=== PATIENT | female | born 1950 | race Caucasian/White ===

== ENCOUNTER 2017-06-14 11:10 | Emergency (ER) ==
[2017-06-14 11:20] VITALS: BP 121/79; TEMP 97.6; BMI 33.3
[2017-06-14 12:19] LABS: BASOPHILS # (AUTO) 0.1 K/uL (0-0.2); BASOPHILS % (AUTO) 0.6 % (0.0-3.0); EOSINOPHILS % (AUTO) 0.4 % (0.0-7.0); HEMATOCRIT 38.3 % (37.0-47.0); HEMOGLOBIN 12.6 g/dl (12.0-16.0); IMMATURE GRANULOCYTE % (AUTO) 0.2 % (0.0-5.0); LYMPHOCYTES # (AUTO) 2.2 K/uL (0.60-3.4); LYMPHOCYTES % (AUTO) 24.7 (10.0-50.0); MEAN CORPUSCULAR HGB CONC 32.9 (31.8-35.4); MEAN CORPUSCULAR VOLUME 94.3 fl (81.0-99.0); MONOCYTES # (AUTO) 0.4 K/uL (0.4-2.0); MONOCYTES % (AUTO) 4.9 (0-10); NEUTROPHILS # (AUTO) 6.1 K/ul (2.0-6.9); NEUTROPHILS % (AUTO) 69.2; PLATELET COUNT 270 10^3/uL (140-440); RED BLOOD COUNT 4.06 10^6/ul (4.20-5.40); WHITE BLOOD COUNT 8.89 K/ul (4.6-10.2)
[2017-06-14 12:20] LABS: ABG BASE EXCESS -2 (-2.0-2.0); ABG HCO3 23 (22.0-26.0); ABG PH 7.41 (7.35-7.45); ABG TCO2 24 (22.0-28.0)
--- NOTE | 2017-06-14 12:46 | DI ---
EXAM: CHEST FRONTAL AND LATERAL VIEWS HISTORY: Shortness of breath. COMPARISON: None FINDINGS: Normal heart size. Chronic-appearing lung changes. There are a few tiny nodules in the lung bases most noticeable entity measuring 0.32 x 0.17 cm. No acute infiltrates or vascular conges tion. No pneumothorax, pleural fluid or acute bony finding. IMPRESSION: 1. No acute cardiopulmonary process. 2. Indeterminate 0.32-cm nodule right lower lung. Consider follow-up radiography in 3-4 months.
[2017-06-14 13:01] LABS: ALBUMIN 3.4 g/dL (3.4-5.0); ALBUMIN/GLOBULIN RATIO 0.92; ANION GAP 17.1; BILIRUBIN,TOTAL 0.39 mg/dL (0.00-1.20); BUN/CREATININE RATIO 17.33; CREATININE 0.75 mg/dL (0.60-1.30); POTASSIUM 5.1 mmol/L (3.5-5.10); TOTAL PROTEIN 7.1 g/dL (5.8-8.1)
[2017-06-14 13:05] LABS: TROPONIN I 0.011 ng/ml (0.0000-0.4000)
[2017-06-14] MEDS ORDERED: SOLU-MEDROL 125 MG IVP STA (13:27)
[2017-06-14] MEDS ORDERED: BENADRYL IV STA (13:28)
[2017-06-14] MEDS ORDERED: PEPCID PO STA (13:28)
--- NOTE | 2017-06-14 13:59 | ED.PDOC ---
General ED Provider: Dr. JAMES FRY Chief Complaint: Shortness of Air Stated Complaint: short of air , cough Time Seen by Physician: 23:20 Mode of Arrival: Wheelchair Information Source: Patient, Family Exam Limitations: No limitations Primary Care Provider: JENNIFER POLANCO Nursing and Triage Documentation Reviewed and Agree: Yes Respiratory Complaint Exam - Respiratory Complaint/Exam Symptoms Are: Still present Timing: Constant Initial Severity: Mild Current Severity: None Location: Chest Character: Reports: Non-productive cough Aggravating: Reports: None Alleviating: Reports: None Associated Signs and Symptoms: Denies: Rapid breathing, Dyspnea, Fever, Chills, Chest pain, Pleuritic chest pain, Wheezing, Hemoptysis, Dizziness, Calf pain, Calf swelling, Edema, URI, Nasal congestion, Hoarseness, Sinus discomfort, Vomiting, Sore throat, Weight loss, Decreased oral intake, Increased thirst, Increased appetite, Increased urination Related History: Reports: Similar episode History of Healthcare-Acquired Pneumonia: No Related Surgical History: Reports: None Pulmonary Embolism Risk Factors: Bedrest Cardiac Risk Factors: Reports: None Review of Systems - Review Of Systems Constitutional: Reports: No symptoms Eyes: Reports: No symptoms Ears, Nose, Mouth, Throat: Reports: No symptoms Respiratory: Reports: Cough, Short of air Cardiac: Reports: No symptoms GI: Reports: No symptoms : Reports: No symptoms Musculoskeletal: Reports: No symptoms Skin: Reports: No symptoms Neurological: Reports: No symptoms Endocrine: Reports: No symptoms Hematologic/Lymphatic: Reports: No symptoms All Other Systems: Reviewed and Negative Past Medical History - Past Medical History Previously Healthy: No Endocrine: Reports: Hypothyroid Cardiovascular: Reports: Hypertension Respiratory: Reports: None Hematological: Reports: None Gastrointestinal: Reports: None Genitourinary: Reports: None Neuro/Psych: Reports: None Musculoskeletal: Reports: None Cancer: Reports: None Last Menstrual Period: na - Surgical History General Surgical History: Reports: None - Family History Family History: Reports: None - Social History Smoking Status: Never smoker Hx Substance Use: No Alcohol Screening: None - Immunizations Tetanus Shot up to Date: Yes Physical Exam - Physical Exam Appearance: Well-appearing, No pain distress, Well-nourished Eyes: ELENA, EOMI, Conjunctiva clear ENT: Ears normal, Nose normal, Oropharynx normal Respiratory: Airway patent, Breath sounds clear, Breath sounds equal, Respirations nonlabored Cardiovascular: RRR, Pulses normal, No rub, No murmur GI/: Soft, Nontender, No masses, Bowel sounds normal, No Organomegaly Musculoskeletal: Normal strength, ROM intact, No edema, No calf tenderness Skin: Warm, Dry, Normal color Neurological: Sensation intact, Motor intact, Reflexes intact, Cranial nerves intact, Alert, Oriented Psychiatric: Affect appropriate, Mood appropriate Critical Care Note - Critical Care Note Total Time (mins): 0 Course - Course Hematology/Chemistry: 06/14/17 12:10 06/14/17 12:10 Orders, Labs, Meds: Lab Review 06/14/17 06/14/17 06/14/17 12:01 12:05 12:10 WBC 8.89 RBC 4.06 L Hgb 12.6 Hct 38.3 MCV 94.3 MCH 31.0 MCHC 32.9 RDW Coeff of Elle 13.6 Plt Count 270 Immature Gran % (Auto) 0.2 Neut % (Auto) 69.2 Lymph % (Auto) 24.7 [place] % (Auto) 4.9 Eos % (Auto) 0.4 Baso % (Auto) 0.6 Immature Gran # (Auto) 0.0 Neut # 6.1 Lymph # 2.2 [place] # 0.4 Eos # 0.0 Baso # 0.1 D-Dimer (Manual) 516.20 Puncture Site R brach O2 Saturation 97.0 ABG pH 7.41 ABG pCO2 37.0 ABG pO2 93.0 ABG HCO3 23 ABG Total CO2 24 ABG Base Excess -2 Anish Test + FiO2 % 21.0 Sodium 141 Potassium 5.1 Chloride 105 Carbon Dioxide 24 Anion Gap 17.1 BUN 13 Creatinine 0.75 Estimated GFR (MDRD) 78.00 BUN/Creatinine Ratio 17.33 Glucose 124 H Calcium 10.0 Total Bilirubin 0.39 AST 19 ALT 17 Alkaline Phosphatase 92 Total Creatine Kinase 69 Troponin I 0.0110 Total Protein 7.1 Albumin 3.4 Globulin 3.7 Albumin/Globulin Ratio 0.92 Free T4 0.90 Orders Category Date Time Status ABG DRAW REQUEST Stat CARDIO 06/14/17 12:01 Completed EKG-(ED ONLY) Stat CARDIO 06/14/17 11:52 Completed NPO REMINDER: IMAGING ONCE CARE 06/14/17 13:20 Active NPO REMINDER: IMAGING ONCE CARE 06/14/17 13:29 Active ABG Stat LAB 06/14/17 12:01 Completed CBC W/ AUTO DIFF Stat LAB 06/14/17 12:10 Completed COMPREHENSIVE METABOLIC PANEL Stat LAB 06/14/17 12:10 Completed CPK [CREATINE KINASE] Stat LAB 06/14/17 12:05 Completed D-DIMER Stat LAB 06/14/17 12:10 Completed FREE T4 (FREE THYROXINE) Stat LAB 06/14/17 12:10 Completed TROPONIN I Stat LAB 06/14/17 12:05 Completed Diphenhydramine Inj [Benadryl] MEDS 06/14/17 13:28 Discontinued 25 mg IV ONCE STA Famotidine [Pepcid] MEDS 06/14/17 13:28 Discontinued 20 mg PO ONCE STA Methylprednisolone Sod Succ/Pf [Solu-Medrol 125 mg] MEDS 06/14/17 13:27 Discontinued 125 mg IVP ONCE STA CHEST, 2 VIEWS PA & LAT Stat RADS 06/14/17 12:[address] CHEST PE PROTOCOL Stat RADS 06/14/17 13:29 Ordered U/S VENOUS SCAN KRISTY LEGS Stat RADS 06/14/17 13:30 Ordered Medications Discontinued Medications Generic Name Dose Route Start Last Admin Trade Name Freq PRN Reason Stop Dose Admin Diphenhydramine HCl 25 mg 06/14/17 13:28 06/14/17 13:38 Benadryl IV 06/14/17 13:29 25 mg ONCE STA Administration Famotidine 20 mg 06/14/17 13:28 06/14/17 13:35 Pepcid PO 06/14/17 13:29 20 mg ONCE STA Administration Methylprednisolone Sodium Succinate 125 mg 06/14/17 13:27 06/14/17 13:36 Solu-Medrol 125 Mg IVP 06/14/17 13:28 125 mg ONCE STA Administration Vital Signs: Temp Pulse Resp BP Pulse Ox 06/14/17 11:15 97.6 F 62 16 121/79 96 Departure - Departure Time of Disposition: 15:00 Disposition: HOME SELF-CARE Discharge Problem: Pulmonary nodule Instructions: Pulmonary Nodules (ED) Condition: Good Pt referred to PMD for follow-up: Yes Additional Instructions: Please call your Family Physician as soon as possible to schedule a follow-up appointment. Allergies/Adverse Reactions: Allergies acetic acid Adverse Reaction (Verified 06/14/17 11:46) azelastine Adverse Reaction (Verified 06/14/17 11:46) caffeine Adverse Reaction (Verified 06/14/17 11:46) cetirizine [From Zyrtec] Adverse Reaction (Verified 06/14/17 11:46) codeine Adverse Reaction (Verified 06/14/17 11:46) guaifenesin Adverse Reaction (Verified 06/14/17 11:46) Iodinated Contrast- Oral and IV Dye Adverse Reaction (Verified 06/14/17 11:46) paroxetine Adverse Reaction (Verified 06/14/17 11:46) soybean Adverse Reaction (Verified 06/14/17 11:46) sulfamethoxazole [From Bactrim] Adverse Reaction (Verified 06/14/17 11:46) trimethoprim [From Bactrim] Adverse Reaction (Verified 06/14/17 11:46) Home Medications: Ambulatory Orders Alprazolam 0.25 mg PO DAILY 06/14/17 Ergocalciferol (Vitamin D2) [Vitamin D2] 50,000 unit PO DAILY 06/14/17 Estradiol [Estrace] 42.5 gm TP DAILY 06/14/17 Estrogens, Conjugated [Premarin] 0.625 mg PO DAILY 06/14/17 Fluticasone Propionate [Flonase] 1 spray PO DAILY 06/14/17 Levothyroxine Sodium [Synthroid] 25 mcg PO DAILY 06/14/17 Mometasone Furoate [Nasonex] 17 gm PO DAILY 06/14/17 Nystatin [Nystatin Cream] 1 tub PO DAILY 06/14/17 [place]-3 Fatty Acids/Fish Oil [Fish Oil 1,000 mg Capsule] 1 tab PO DAILY Omeprazole Magnesium [Prilosec] 10 mg PO DAILY 06/14/17 Oxybutynin Chloride [Ditropan Xl] 10 mg PO DAILY 06/14/17 Propranolol HCl [Inderal] 10 mg PO DAILY 06/14/17 Rosuvastatin Calcium [Crestor] 20 mg PO DAILY 06/14/17 Temazepam [Restoril] 15 mg PO DAILY 06/14/17 Venlafaxine HCl [Effexor Xr] 150 mg PO DAILY 06/14/17 Disposition Discussed With: Patient, Family
--- NOTE | 2017-06-14 14:24 | US ---
EXAM: Bilateral lower extremity venous doppler. HISTORY: Difficulty breathing. Deep vein thrombosis. COMPARISON: None available. TECHNIQUE: Multiple grayscale and color doppler images were obtained. FINDINGS: There is normal flow, compressibility and augmentation of flow within the right and left common femoral, greater saphenous, profunda, femoral, popliteal, posterior tibial, anterior tibial a nd peroneal veins. IMPRESSION: No evidence for right or left lower extremity deep vein thrombosis at the levels examined.
--- NOTE | 2017-06-14 15:39 | CT ---
EXAM: CT Angiogram Chest. HISTORY: Elevated D-dimer. COMPARISON: Radiograph earlier the same day. TECHNIQUE: Multiple axial images of the chest were obtained following intravenous administration of 75 mL of Omnipaque 350, low osmolar. Images were reformatted in the sagittal and coronal plane. 3 -D and maximum intensity projection reformatted images were created on an independent workstation. FINDINGS: No lymphadenopathy identified. Heart size is normal. There is no pericardial effusion. No pulmonary arterial filling defects are seen. Calcified granulomatous changes are present. No co nsolidation, pleural effusion or pneumothorax identified. Moderate hiatal hernia is present. The tube by 1.7 cm low density posterior right hepatic lobe lesi on seen on axial image 61. The gallbladder is absent. No acute osseous abnormality detected. IMPRESSION: 1. No evidence for pulmonary embolus or other acute abnormality chest. 2. Evidence of prior granulomatous disease. 3. Indeterminate 2 cm hepatic lesion. Correlation with abdominal MRI should be considered. 4. Moderate hiatal hernia.
== END 2017-06-14 16:12 | disposition home or self-care (01) ==
LOC: ED 11:10
DX: R91.1 Solitary pulmonary nodule (principal); D18.03 Hemangioma of intra-abdominal structures; R06.02 Shortness of breath; R05 Cough; I10 Essential (primary) hypertension; E03.9 Hypothyroidism, unspecified; Z79.899 Other long term (current) drug therapy
CPT/HCPCS: 36415; 80053; 82550; 82803; 84439; 84484; 85025; 85379; 93005; 93010; 96374; 96375; 99283